=== PATIENT | female | born 2000 | race Caucasian/White ===

== ENCOUNTER 2023-04-20 21:01 | Outpatient (CLI) | payer OTHER ==
[2023-04-20 21:38] VITALS: BP 116/62
[2023-04-20 22:12] LABS: BASOPHILS % (AUTO) 0.1 %; EOSINOPHILS # (AUTO) 0.1 10^3/uL (0.0-0.7); EOSINOPHILS % (AUTO) 0.6 %; HCT - HEMATOCRIT 32.3 % (37.0-47.0); HGB - HEMOGLOBIN 10.9 g/dL (12.0-16.0); LYMPHOCYTES # (AUTO) 2.1 10^3/uL (1.5-3.5); LYMPHOCYTES % (AUTO) 22.7 %; MEAN CORPUSCULAR HEMOGLOBIN 31.6 pg (27.0-31.0); MEAN CORPUSCULAR HGB CONC 33.7 g/dL (32.0-36.0); MEAN CORPUSCULAR VOLUME 93.6 fL (81.0-99.0); MEAN PLATELET VOLUME 9.4 fL (7.9-10.8); MONOCYTES # (AUTO) 0.7 10^3/uL (0.0-1.0); MONOCYTES % (AUTO) 7.5 %; NEUTROPHILS # (AUTO) 6.2 10^3/uL (1.5-6.6); NEUTROPHILS % (AUTO) 68.9 %; PLT - PLATELET COUNT 242 10^3/uL (130-450); RED BLOOD COUNT 3.45 10^6/uL (4.20-5.40); RED CELL DISTRIBUTION WIDTH 12.5 % (12.0-15.0); WHITE BLOOD COUNT 9.1 x10^3/uL (4.8-10.8)
[2023-04-20 22:29] LABS: BILIRUBIN,URINE NEGATIVE (NEGATIVE); GLUCOSE, URINE (UA) NEGATIVE (NEGATIVE); KETONES,URINE (UA) NEGATIVE (NEGATIVE); LEUKOCYTE ESTERASE, URINE NEGATIVE (NEGATIVE); NITRITE,URINE NEGATIVE (NEGATIVE); OCCULT BLOOD,URINE NEGATIVE (NEGATIVE); PROTEIN,URINE NEGATIVE (NEGATIVE); UROBILINOGEN,URINE 0.2 (NORMAL) E.U./dL (NORMAL)
[2023-04-20 22:31] LABS: CLARITY,URINE CLEAR (CLEAR)
[2023-04-20 22:36] LABS: ALBUMIN 3.6 g/dL (3.2-5.5); ALBUMIN/GLOBULIN RATIO 1.3 (1.0-2.2); BILIRUBIN,TOTAL 0.4 mg/dL (0.2-1.0); CALCIUM 8.7 mg/dL (8.5-10.3); CREATININE 0.5 mg/dL (0.6-1.3); POTASSIUM 3.9 mmol/L (3.5-4.5); TOTAL PROTEIN 6.4 g/dL (6.4-8.9)
[2023-04-20] MEDS: LACTATED RINGERS 1,000 ML IV ONE (23:40)
--- NOTE | 2023-04-21 01:19 | PROVIDER PROGRESS NOTE ---
- HPI Chief Complaint: Pain, non-labor Current : Vital Signs Temperature 98.4 F 04/20/23 21:19 Heart Rate 74 04/20/23 21:19 Respiratory Rate 18 04/20/23 21:19 Blood Pressure 116/62 04/20/23 21:19 Temperature 98.4 F 04/20/23 21:19 Heart Rate 74 04/20/23 21:19 Respiratory Rate 18 04/20/23 21:19 Blood Pressure 116/62 04/20/23 21:19 O2 Saturation If not protocol: Oxygen Flow, liters/minute - Procedures OB Procedure Performed: NST Diagnosis/Indication for NST: Decreased movement NST Procedure: 135 mod rox + a cells one variable D cell in early triage Service Date of procedure: 04/20/23 Procedure Details: 135 mod rox + A cells with 1 variable D cell, overall reassuring. - Plan Plan: 22yo G1 @ 27 weeks gestation presented to triage with upper epigastric and RUQ pain started at 2pm today. Initially it started at her back and it feels "like a ball" (makes gesture of a grapefruit sized ball) is swelling in her upper right quadrant. no N/V no F/C no CP / SOB today she hasn't felt the baby move - and not tonight - and he is typically very active at night, so this is unusual for him. ate wendys chili today, and follows no specific intentional diet also had two bowls of cereal this morning with whole milk - which is when the mild pain started PMH: denies PSH: denies POB: G1 PGYN: no h/o abnormal pap no h/o STDs no h/o problems with ovaries or uterus pt with regular monthly periods, when not Meds: PNV, All: NKDA Soc: neg x3, lives with her who is in the [place]. Does drink about 1 liter of chavez coke every day - discussed this & need to stop. VSS NAD Conjunctiva pink, pale sclera +S1, S2, CTAB, no increased work of breathing Abd soft, NT, ND, visibly gravid at -- pressure in upper R quadrant caused some pain - though not acute wincing. Jatin: c/w 27w gestation EFM: 135mod rox + A cells, one rox D cell with SRTB [place]: acontractile Cx: def Ext: neg CCE U/S done because of absent movement -- also showed decreased movement on U/S. A/P: suspect gallbladder pain -- discussed fat free diet and precautions absent movement -- do not suspect that this is related to the pain -- IV fluid bolus -- PO juice -- cEFM -- re U/S in 2-6h depending on tracing. discussed this with patient and her partner. all verbalized understanding and agree with the plan.
--- NOTE | 2023-04-21 01:45 | PROVIDER PROGRESS NOTE ---
Subjective - Prog Note Date Prog Note Date: 04/21/23 Prog Note Time: 01:45 - Subjective Pt reports feeling: Improved Subjective: pt reports feeling baby move much better on bedside U/S markedly improved movement pts pain is also better OK to D/C home will provide writen information on gallbladder diet. Objective - Vital Signs/Intake & Output Vital Signs: Vital Signs x48h Temp Pulse Resp BP 04/20/23 21:19 98.4 F 74 18 116/62 - Lab Results Fish Bones: 04/20/23 22:02 04/20/23 22:02 Other Labs: Lab Results x24hrs 04/20/23 04/20/23 04/20/23 Range/Units 22:02 22:02 21:52 WBC 9.1 (4.8-10.8) x10^3/uL RBC 3.45 L (4.20-5.40) 10^6/uL Hgb 10.9 L (12.0-16.0) g/dL Hct 32.3 L (37.0-47.0) % MCV 93.6 (81.0-99.0) fL MCH 31.6 H (27.0-31.0) pg MCHC 33.7 (32.0-36.0) g/dL RDW 12.5 (12.0-15.0) % Plt Count 242 (130-450) 10^3/uL MPV 9.4 (7.9-10.8) fL Neut # (Auto) 6.2 (1.5-6.6) 10^3/uL Lymph # (Auto) 2.1 (1.5-3.5) 10^3/uL [place] # (Auto) 0.7 (0.0-1.0) 10^3/uL Eos # (Auto) 0.1 (0.0-0.7) 10^3/uL Baso # (Auto) 0.0 (0.0-0.1) 10^3/uL Absolute Nucleated RBC 0.00 x10^3/uL Nucleated RBC % 0.0 /100WBC Sodium 136 (135-145) mmol/L Potassium 3.9 (3.5-4.5) mmol/L Chloride 106 (101-111) mmol/L Carbon Dioxide 26 (21-32) mmol/L Anion Gap 4.0 L (6-13) BUN 10 (6-20) mg/dL Creatinine 0.5 L (0.6-1.3) mg/dL Estimated GFR (MDRD) 156 (>89) Glucose 94 (74-104) mg/dL Calcium 8.7 (8.5-10.3) mg/dL Total Bilirubin 0.4 (0.2-1.0) mg/dL AST 13 (10-42) IU/L ALT 13 (10-60) IU/L Alkaline Phosphatase 55 (42-121) IU/L Total Protein 6.4 (6.4-8.9) g/dL Albumin 3.6 (3.2-5.5) g/dL Globulin 2.8 (2.1-4.2) g/dL Albumin/Globulin Ratio 1.3 (1.0-2.2) Lipase 44 (11-82) U/L Urine Color YELLOW Urine Clarity CLEAR (CLEAR) Urine pH 6.0 (5.0-7.5) PH Ur Specific [place] 1.025 (1.002-1.030) Urine Protein NEGATIVE (NEGATIVE) mg/dL Urine Glucose (UA) NEGATIVE (NEGATIVE) mg/dL Urine Ketones NEGATIVE (NEGATIVE) mg/dL Urine Occult Blood NEGATIVE (NEGATIVE) Urine Nitrite NEGATIVE (NEGATIVE) Urine Bilirubin NEGATIVE (NEGATIVE) Urine Urobilinogen 0.2 (NORMAL) (NORMAL) E.U./dL Ur Leukocyte Esterase NEGATIVE (NEGATIVE) Ur Microscopic Review NOT INDICATED Urine Culture Comments NOT INDICATED
== END 2023-04-21 02:05 | disposition home or self-care (01) ==
LOC: WFO 21:01 → FBP 21:06 → WFO 04-21 02:05
PROVIDERS: ATTEND Obstetrics & Gynecology
DX: O99.891 Other specified diseases and conditions complicating pregnancy (principal); R10.11 Right upper quadrant pain; R10.13 Epigastric pain; O36.8120 Decreased fetal movements, second trimester, not applicable or unspecified; Z3A.27 27 weeks gestation of pregnancy
CPT/HCPCS: 36415; 59025; 80053; 81003; 83690; 85025; 99215; J7120; 81001; 87086

== ENCOUNTER 2023-04-27 10:23 | Outpatient (CLI) | payer OTHER ==
[2023-04-27 11:27] LABS: CREATININE,URINE 127.1 mg/dL; PROTEIN/CREATININE RATIO,URINE 0.2 (<=0.2)
[2023-04-27 11:40] LABS: HCT - HEMATOCRIT 34.9 % (37.0-47.0); HGB - HEMOGLOBIN 11.7 g/dL (12.0-16.0); MEAN CORPUSCULAR HEMOGLOBIN 31.8 pg (27.0-31.0); MEAN CORPUSCULAR HGB CONC 33.5 g/dL (32.0-36.0); MEAN CORPUSCULAR VOLUME 94.8 fL (81.0-99.0); MEAN PLATELET VOLUME 9.5 fL (7.9-10.8); RED BLOOD COUNT 3.68 10^6/uL (4.20-5.40); RED CELL DISTRIBUTION WIDTH 12.6 % (12.0-15.0); WHITE BLOOD COUNT 10.4 x10^3/uL (4.8-10.8)
[2023-04-27 11:57] LABS: ALBUMIN 3.6 g/dL (3.2-5.5); ALBUMIN/GLOBULIN RATIO 1.3 (1.0-2.2); BILIRUBIN,TOTAL 0.4 mg/dL (0.2-1.0); CALCIUM 8.9 mg/dL (8.5-10.3); CREATININE 0.6 mg/dL (0.6-1.3); POTASSIUM 4.1 mmol/L (3.5-4.5); TOTAL PROTEIN 6.3 g/dL (6.4-8.9)
[2023-04-27 12:11] LABS: THYROID STIMULATING HORMONE 0.94 uIU/mL (0.34-5.60)
== END 2023-04-27 10:24 | disposition home or self-care (01) ==
LOC: LAB 10:23
PROVIDERS: ATTEND Nurse Practitioner
DX: O99.891 Other specified diseases and conditions complicating pregnancy (principal); R42 Dizziness and giddiness
CPT/HCPCS: 36415; 80053; 82570; 82950; 84156; 84443; 85027

== ENCOUNTER 2023-05-31 15:00 | Outpatient (CLI) | payer OTHER ==
--- NOTE | 2023-05-31 16:23 | Ultrasound Report ---
PROCEDURE: OB Anatomy Scan INDICATIONS: SUPERVISION OF OUTSIDE/PRIOR DATING DATA: Last menstrual period (LMP): 10/13/2022. LMP-based estimated date of delivery (NILE): 07/20/2023. First dating scan (date and location): Physician's office. Estimated date of delivery (NILE) from first dating scan: 07/20/2023. The below data below was generated using the clinical NILE of 07/20/2023 TECHNIQUE: Real-time scanning was performed of the fetus, with image documentation and biometric measurements. Endovaginal scanning: Not performed. COMPARISON: None. FINDINGS: General: A single living intrauterine gestation is present. Presentation: Cephalic Placenta: Placental position is anterior, without previa. Amniotic fluid index: 10.2 cm, within normal limits for gestational age. heart rate: 152 beats per minute. Maternal cervical canal: 3.6 cm long; normal length is 2.5 cm or more. biometrics: Biparietal diameter: 8.21 cm, 33 weeks 0 days Head circumference: 33.3 cm, 35 weeks 1 day Abdominal circumference: 31.3 cm, 35 weeks 2 days Femur length: 6.63 cm, 34 weeks 1 day Estimated working clinical age: 32 weeks 6 days Composite gestational age from present scan: 34 weeks 3 days Estimated weight and percentile: 2503.5 g, 91.5 percentile Measurement variability in biometric dating: +/- 10 days from 12-20 weeks gestation, +/- 2 weeks from 20-30 weeks gestation, +/- 3 weeks at 30 weeks gestation or later. Anatomic survey: Neuro: Ventricles are normal at less than 10 mm. Cisterna magna is normal at 3-11 mm. Cerebellum i s normal in size and morphology. Nuchal skin fold: Not evaluated Face: Nose and lips, facial profile are normal. Spine: No evidence for spina bifida. Heart: 4 chamber view within normal limits. Outflow tracts not imaged Diaphragm: Diaphragm is intact. Stomach: Left-sided stomach is present. Kidneys: No hydronephrosis. Normal is less than 5 mm in 2nd trimester, less than 7 mm in 3rd trimester. Cord: 3 vessel cord. Cord insertion not imaged Bladder: Normal in size. Extremities: All 4 extremities are visualized. IMPRESSION: 1. Third trimester intrauterine with no sonographic evidence of complications. Current ultr asound age is 11 days greater than clinical age. Limited anatomy study secondary to relatively late stage of . Reviewed by: Benji Da Silva MD on 05/31/2023 4:22 PM PST Approved by: Benji Da Silva MD on 05/31/2023 4:22 PM PST Station ID: [id number]
== END 2023-05-31 15:01 | disposition home or self-care (01) ==
LOC: DI 15:00
PROVIDERS: ATTEND Obstetrics & Gynecology
DX: Z34.03 Encounter for supervision of normal first pregnancy, third trimester (principal)

== ENCOUNTER 2023-06-08 11:24 | Outpatient (CLI) | payer OTHER ==
[2023-06-08 16:33] LABS: CREATININE,URINE 186.6 mg/dL; PROTEIN/CREATININE RATIO,URINE 0.2 (<=0.2)
== END 2023-06-08 23:59 | disposition home or self-care (01) ==
LOC: LAB.R 11:24
PROVIDERS: ATTEND Nurse Practitioner
DX: O26.02 Excessive weight gain in pregnancy, second trimester (principal)
CPT/HCPCS: 82570; 84156

== ENCOUNTER 2023-06-08 11:47 | Outpatient (CLI) | payer OTHER ==
[2023-06-08 12:00] LABS: BASOPHILS % (AUTO) 0.2 %; EOSINOPHILS # (AUTO) 0.1 10^3/uL (0.0-0.7); EOSINOPHILS % (AUTO) 0.6 %; HCT - HEMATOCRIT 35.1 % (37.0-47.0); LYMPHOCYTES # (AUTO) 1.8 10^3/uL (1.5-3.5); LYMPHOCYTES % (AUTO) 14.6 %; MEAN CORPUSCULAR HEMOGLOBIN 31.3 pg (27.0-31.0); MEAN CORPUSCULAR HGB CONC 34.2 g/dL (32.0-36.0); MEAN CORPUSCULAR VOLUME 91.6 fL (81.0-99.0); MEAN PLATELET VOLUME 9.7 fL (7.9-10.8); MONOCYTES # (AUTO) 1.1 10^3/uL (0.0-1.0); MONOCYTES % (AUTO) 8.5 %; NEUTROPHILS # (AUTO) 9.2 10^3/uL (1.5-6.6); NEUTROPHILS % (AUTO) 75.1 %; PLT - PLATELET COUNT 266 10^3/uL (130-450); RED BLOOD COUNT 3.83 10^6/uL (4.20-5.40); RED CELL DISTRIBUTION WIDTH 12.6 % (12.0-15.0); WHITE BLOOD COUNT 12.3 x10^3/uL (4.8-10.8)
[2023-06-08 12:16] LABS: ALBUMIN 3.7 g/dL (3.2-5.5); ALBUMIN/GLOBULIN RATIO 1.5 (1.0-2.2); BILIRUBIN,TOTAL 0.4 mg/dL (0.2-1.0); CALCIUM 9.7 mg/dL (8.5-10.3); CREATININE 0.5 mg/dL (0.6-1.3); TOTAL PROTEIN 6.2 g/dL (6.4-8.9)
== END 2023-06-08 11:48 | disposition home or self-care (01) ==
LOC: LAB 11:47
PROVIDERS: ATTEND Nurse Practitioner
DX: H53.419 Scotoma involving central area, unspecified eye (principal); R51.9 Headache, unspecified
CPT/HCPCS: 36415; 80053; 85025

== ENCOUNTER 2023-06-08 11:57 | Outpatient (CLI) | payer OTHER ==
--- NOTE | 2023-06-08 12:14 | PROCEDURE REPORT ---
- HPI Diagnosis/Indication for NST: Other ( tachycardia) Current EDU 07/20/23 Gestation 34 Weeks and 0 Days 1 Para 0 Vital Signs Temperature 98.8 F 06/08/23 12:11 Heart Rate 89 06/08/23 12:11 Respiratory Rate 16 06/08/23 12:11 Blood Pressure 120/73 06/08/23 12:11 Temperature 98.8 F 06/08/23 12:11 Heart Rate 89 06/08/23 12:11 Respiratory Rate 16 06/08/23 12:11 Blood Pressure 120/73 06/08/23 12:11 O2 Saturation If not protocol: Oxygen Flow, liters/minute - NST Procedure NST Procedure Start Time 21:14 Stop Time 22:11 Performed: 06/08/2023 Read: 06/08/2023. - Results and Plan Plan: Patient is a 23-year-old G1, P0 at 34 weeks 0 days gestation sent for NST from the clinic for tachycardia. She feels good movement. No contractions, no leaking. NST: 140 bpm baseline, moderate variability, no accelerations, no decelerations. Nonreactive NST [place]: Quiescent Nonreactive NST Vibroacoustic stimulation used, but nonreactive. Gave patient a snack and liquid and performed an JESSICA of 13.7 cm. And during this time patient was placed back on the monitor with a reactive NST. Patient discharged with routine care.
[2023-06-08 12:18] VITALS: BP 120/73
== END 2023-06-08 13:50 | disposition home or self-care (01) ==
LOC: WFO 11:57 → FBP 12:00 → WFO 13:50
PROVIDERS: ATTEND Obstetrics & Gynecology
DX: O36.8330 Maternal care for abnormalities of the fetal heart rate or rhythm, third trimester, not applicable or unspecified (principal); Z3A.34 34 weeks gestation of pregnancy; O26.03 Excessive weight gain in pregnancy, third trimester; O99.891 Other specified diseases and conditions complicating pregnancy; R51.9 Headache, unspecified; H53.419 Scotoma involving central area, unspecified eye
CPT/HCPCS: 36415; 59025; 80053; 82570; 84156; 85025; 99214

== ENCOUNTER 2023-06-22 08:00 | Outpatient (CLI) | payer OTHER ==
[2023-06-22 16:31] LABS: CREATININE,URINE 166.5 mg/dL; PROTEIN/CREATININE RATIO,URINE 0.2 (<=0.2)
== END 2023-06-22 23:59 | disposition home or self-care (01) ==
LOC: LAB.WC 08:00
PROVIDERS: ATTEND Nurse Practitioner
DX: O99.891 Other specified diseases and conditions complicating pregnancy (principal); R51.9 Headache, unspecified; Z36.85 Encounter for antenatal screening for Streptococcus B
CPT/HCPCS: 82570; 84156; 87797

== ENCOUNTER 2023-06-29 12:16 | Outpatient (CLI) | payer OTHER ==
[2023-06-29 12:32] VITALS: BP 120/67; O2SAT 97
--- NOTE | 2023-06-29 15:24 | Ultrasound Report ---
PROCEDURE: OB Biophysical Profile INDICATIONS: decrease movement OUTSIDE/PRIOR DATING DATA: Last menstrual period (LMP): 10/13/2022. LMP-based estimated date of delivery (NILE): 07/20/2023. First dating scan (date and location): Physician's office. Estimated date of delivery (NILE) from first dating scan: 07/20/2023. The below data below was generated using the clinical NILE of 07/20/2023 TECHNIQUE: Real-time scanning was performed of the fetus, with image documentation and biometric julio césar surements. Biophysical profile was also obtained. Endovaginal scanning: Not performed COMPARISON: 05/31/2023 FINDINGS: General: A single living intrauterine gestation is present. Presentation: Vertex Placenta: Placental position is anterior, without previa. Amniotic fluid index: 10.0 cm cm, normal for gestational age. heart rate: 169 beats per minute. Maternal cervical canal: 4.8 cm long; normal length is 2.5 cm or more. Estimated gestational age from initial scan: 37 weeks, 0 days. Biophysical profile: Tone: 2 points. Movement: 2 points. Respiration: 2 points. Largest pocket of fluid: 2 points. IMPRESSION: Single live intrauterine consistent with 37 weeks and 0 days. Normal biophysical profile. Reviewed by: Brad Pacheco MD on 06/29/2023 3:23 PM PDT Approved by: Brad Pacheco MD on 06/29/2023 3:23 PM PDT Station ID: [id number]
--- NOTE | 2023-06-29 18:17 | PROVIDER PROGRESS NOTE ---
- HPI Chief Complaint: Decreased movement Current : Current EDU 07/20/23 Gestation 37 Weeks and 0 Days 1 Para 0 Vital Signs Temperature 98.2 F 06/29/23 12:25 Heart Rate 84 06/29/23 12:25 Respiratory Rate 17 06/29/23 12:25 Blood Pressure 120/67 06/29/23 12:25 O2 Saturation 97 06/29/23 12:25 Temperature 98.2 F 06/29/23 12:31 Heart Rate 84 06/29/23 12:25 Respiratory Rate 17 06/29/23 12:25 Blood Pressure 120/67 06/29/23 12:25 O2 Saturation 97 06/29/23 12:25 If not protocol: Oxygen Flow, liters/minute - Procedures NST Procedure: NST Procedure Start Date 06/29/23 Start Time 14:10 Stop Time 14:36 Vibroacoustic Stimulation Used No Patient States Movement Yes: decrease - Plan Plan: Patient is a 23-year-old G1, P0 at 37 weeks 0 days gestation presented to triage for decreased movement. Since arrival, she has had better movement and feels well,. Denies contractions, leaking, bleeding. She denies headache, right upper quadrant pain, changes in vision. Physical Exam Constitutional: alert, no acute distress, well hydrated, well developed, well nourished, appropriate dress. Cardiovascular: Regular rate and rhythm. Respiratory: no respiratory distress. Abdomen: nondistended, nontender, no guarding. Psych: affect and mood appropriate, normal interaction, good eye contact. FHT: 145 bpm baseline, moderate variability, accelerations present, no decelerations during NST, but during continuous monitoring, did have occasional variable deceleration. Reactive NST [place]: Rare BPP: 11/01 JESSICA: 10 cm Assessment and plan Decreased movement: Adequate fluid, reactive NST, good movement while here. -Plan to hydrate, eat, return tomorrow for NST 37 weeks gestation Routine care
== END 2023-06-29 14:35 | disposition home or self-care (01) ==
LOC: WFO 12:16 → FBP 12:16 → WFO 14:35
PROVIDERS: ATTEND Obstetrics & Gynecology
DX: O36.8130 Decreased fetal movements, third trimester, not applicable or unspecified (principal); Z3A.37 37 weeks gestation of pregnancy
CPT/HCPCS: 59025; 99215

== ENCOUNTER 2023-06-30 10:50 | Outpatient (CLI) | payer OTHER ==
[2023-06-30 11:04] VITALS: BP 121/71; O2SAT 97
--- NOTE | 2023-06-30 14:33 | PROCEDURE REPORT ---
- HPI Current EDU 07/20/23 Gestation 37 Weeks and 1 Days 1 Para 0 Vital Signs Temperature 98.2 F 06/30/23 10:58 Heart Rate 105 H 06/30/23 10:58 Respiratory Rate 16 06/30/23 10:58 Blood Pressure 121/71 06/30/23 10:58 Temperature 98.2 F 06/30/23 11:01 Heart Rate 105 H 06/30/23 11:01 Respiratory Rate 16 06/30/23 11:01 Blood Pressure 121/71 06/30/23 11:01 O2 Saturation 97 06/30/23 11:01 If not protocol: Oxygen Flow, liters/minute - NST Procedure NST Procedure Start Date 06/30/23 Start Time 10:58 Stop Time 11:35 Vibroacoustic Stimulation Used No Patient States Movement Yes - Results and Plan Plan: Patient is a 23-year-old G1, P0 at 37 weeks 1 day gestation here for NST. NST Performed 06/30/2023 NST Read 06/30/2023 FHT: 150 bpm baseline, moderate variability, accelerations present, no decelerations. Reactive NST [place]: Quiescent Diagnosis 37 weeks gestation Decreased movement Continue with scheduled OB care
== END 2023-06-30 11:42 | disposition home or self-care (01) ==
LOC: WFO 10:50 → FBP 10:51 → WFO 11:42
PROVIDERS: ATTEND Obstetrics & Gynecology
DX: O36.8130 Decreased fetal movements, third trimester, not applicable or unspecified (principal); Z3A.37 37 weeks gestation of pregnancy
CPT/HCPCS: 59025

== ENCOUNTER 2023-07-13 23:20 | Inpatient (IN) | payer OTHER ==
[2023-07-14] MEDS ORDERED: NIFEdipine 10 MG CAPSULE PO PRN (00:10)
[2023-07-14] MEDS ORDERED: METHYLERGONOVINE 0.2 MG/ML VIAL IM PRN (00:10)
[2023-07-14] MEDS ORDERED: hydrALAZINE INJ 20 MG/ML VIAL IVP PRN ×2 (00:10)
[2023-07-14] MEDS ORDERED: OXYTOCIN 10 UNIT/ML VIAL IM PRN (00:10)
[2023-07-14] MEDS ORDERED: TERBUTALINE 1 MG/ML VIAL SUBQ PRN (00:10)
[2023-07-14] MEDS ORDERED: LABETALOL 20 MG/4 ML SYRINGE IVP PRN ×3 (00:10)
[2023-07-14] MEDS ORDERED: miSOPROStoL 200 MCG TABLET BC PRN (00:10)
[2023-07-14] MEDS ORDERED: CARBOPROST TROMETHAMINE 250 MCG/ML VIAL IM PRN (00:10)
[2023-07-14] MEDS ORDERED: SODIUM CHLORIDE FLUSH 0.9% 10 ML SYRINGE IVP PRN (00:10)
[2023-07-14] MEDS ORDERED: miSOPROStoL 200 MCG TABLET PR PRN (00:10)
[2023-07-14] MEDS ORDERED: fentaNYL 100 MCG/2 ML VIAL IVP PRN (00:10)
[2023-07-14 00:33] LABS: BASOPHILS % (AUTO) 0.2 %; EOSINOPHILS % (AUTO) 0.1 %; HCT - HEMATOCRIT 35.6 % (37.0-47.0); HGB - HEMOGLOBIN 12.3 g/dL (12.0-16.0); LYMPHOCYTES # (AUTO) 1.8 10^3/uL (1.5-3.5); LYMPHOCYTES % (AUTO) 9.7 %; MEAN CORPUSCULAR HEMOGLOBIN 30.9 pg (27.0-31.0); MEAN CORPUSCULAR HGB CONC 34.6 g/dL (32.0-36.0); MEAN CORPUSCULAR VOLUME 89.4 fL (81.0-99.0); MEAN PLATELET VOLUME 10.8 fL (7.9-10.8); MONOCYTES # (AUTO) 1.2 10^3/uL (0.0-1.0); MONOCYTES % (AUTO) 6.4 %; NEUTROPHILS # (AUTO) 15.3 10^3/uL (1.5-6.6); NEUTROPHILS % (AUTO) 83.2 %; PLT - PLATELET COUNT 261 10^3/uL (130-450); RED BLOOD COUNT 3.98 10^6/uL (4.20-5.40); WHITE BLOOD COUNT 18.4 x10^3/uL (4.8-10.8)
[2023-07-14] MEDS ORDERED: SODIUM CHLORIDE FLUSH 0.9% 10 ML SYRINGE IVP SCH (01:00)
[2023-07-14] MEDS: LACTATED RINGERS 1,000 ML IV ONE (01:29)
[2023-07-14] MEDS ORDERED: MINERAL OIL LIGHT 10 ML ONE (03:22)
[2023-07-14] MEDS: OXYTOCIN/SODIUM CHLORIDE 500 ML IV PRN (03:35)
[2023-07-14] MEDS: lidocaine 1% 20 ML MDV ID PRN (03:42)
[2023-07-14] MEDS: TRANEXAMIC ACID IN NACL 1,000 MG/100 ML BAG IV PRN (03:42)
[2023-07-14] MEDS: MINERAL OIL LIGHT 10 ML MC ONE (03:42)
[2023-07-14] MEDS ORDERED: oxyCODONE 5 MG TABLET PO PRN (04:20)
[2023-07-14] MEDS ORDERED: MAGNESIUM HYDROXIDE 2,400 MG/30 ML UDC PO PRN (04:20)
[2023-07-14] MEDS ORDERED: diphenhydrAMINE 25 MG CAPSULE PO PRN (04:20)
--- NOTE | 2023-07-14 04:27 | HISTORY & PHYSICAL EXAMINATION ---
Admit History - Visit Reason Visit Reason: Contractions - Care: positive: [facility] Smoking Status: Former smoker - Mother's Labs Mother's Blood Type: positive: AB Mother's RH: positive: Positive GBS: positive: Group B Step Negative - Other Maternal History Other Maternal History: HPI: after her clinic visit, started fab at about 4 pm. came to [facility] just before midnight and was 4 cm. desires unmedicated . Patient presents today for her f/u at 39+0 .................. .................................................Elisha Mcdaniel LPN July 13, 2023 10:39 AM. Allergies: Allergies Reviewed: Done No Known Allergies Medications: Meds Reviewed: Done * ELECTRIC BREAST PUMP Use 1 device as directed as directed USE TO EXPRESS MILK ACCORDING TO BABY'S NEEDS Z39.1 NILE 07/20/2023 * vitamin * Tylenol (acetaminophen) Problems: Supervision of normal first , third trimester (ICD-V22.0) (ICD10- Z34.03) Past Medical History: Depression/anxiety Vital Signs: Patient Profile: 23 Years Old Female Height: 70 inches Weight: 226.1 pounds BMI: 32.56 BP sittin / 70 Vitals Entered By: Elisha Mcdaniel LPN (July 13, 2023 10:39 AM) Meds Reviewed: Done Allergies Reviewed: Done No known allergies: T Flowsheet View for Follow-up Visit Estimated weeks of gestation: 39 0/7 Weight: 226.1 Blood pressure: 128 / 70 Headache: No Nausea/vomiting: No Edema: min Fundal height: 40 FHR: 140 Vaginal bleeding: no Vaginal discharge: no activity: yes Labor symptoms: no position: vtx Cx Dilation: 0 Cx Station: -3 Taking vits? Y Smoking: n/a Next visit: Comment: induction next week. PP iUD desired, ParaGard info given. wehn to go to [facility] reviewed for labor and for induction. cervix too posterior to reach. vertex in SAMEER bulging Here with Luis. -djl G1PO LMP: 10/13/22 NILE by LMP: 07/19/22 US:01/13/23 - c/w dates Final NILE: 07/19/22 sex: It's a boy. FOB Luis. [place] Pre- Weight:152 BMI: 21.81 Blood type: AB+ Antibody: neg CBC: PLT 313 HCT 39.7 HGB 13.6 RUB:Imm VZV:Imm HBsAg: neg HepC: nreg RPR/AB-EIA:NR HIV: neg PAP:12/16/22 - NILM GC/CT:neg HSV: declines self and partner Genetic testing: nuchal translucency normal Covid: vaccinated Flu: 03/28/2023 FAS: (completed prior to transfer 02/24/2023) requested x2. Reordered previously. Normal anatomy scan. Three-vessel cord. Placenta anterior without previa. EFW 2503 g, 92nd percentile. Placenta: Cord: JESSICA: EFW: 50gm OGCT: 101 3HR GTT: TDAP:04/27 Breast Pump:04/27 3rd trimester H/H 11.7/34.9 PLT 225 GBS: 06/21 Negative Delivery plan: Contraception: POST PLACENTAL IUD PLACEMENT. Next 2-3 years P: 0 LMP: 10/13/2022 EDC: 07/20/2023 EDC by Ultrasound: 07/19/2023 Height: 70 (05/25/2023 11:16:48 AM) Weight: 226.1 Gonnorhea: Negative (12/16/2022 3:51:06 PM) Chlamydia: negative (12/16/2022 10:40:06 AM) Group B: NEGATIVE (06/22/2023 10:34:00 AM) US: 13W 2D (01/13/2023 10:30:11 AM) Blood Type: AB+ (12/16/2022 10:37:26 AM) RH Type: + (12/16/2022 10:38:01 AM) Last Antibody Screen: negative (12/16/2022 10:38:09 AM) Gonnorrhea: Negative (12/16/2022 3:51:06 PM) Chlamydia: negative (12/16/2022 10:40:06 AM) RPR: negative (12/16/2022 10:39:05 AM) Last Pap: Normal (12/16/2022 10:39:47 AM) Next pap due: 12/16/2025 (03/28/2023 2:24:41 PM) - HPI Current EDU 07/20/23 Gestation 39 Weeks and 1 Days 1 Vital Signs Temperature 99.1 F 07/13/23 23:30 Heart Rate 73 07/13/23 23:30 Respiratory Rate 18 07/13/23 23:30 Blood Pressure 137/45 H 07/13/23 23:30 Temperature 99.0 F 07/14/23 00:29 Heart Rate 73 07/13/23 23:30 Respiratory Rate 18 07/13/23 23:30 Blood Pressure 137/45 H 07/13/23 23:30 O2 Saturation If not protocol: Oxygen Flow, liters/minute - NST Procedure NST Procedure Start Time 10:58 Stop Time 11:35 Meds/Allgy - Allergies Allergies/Adverse Reactions: Allergies Allergy/AdvReac Type Severity Reaction Status Date / Time No Known Drug Allergies Allergy Verified 04/20/23 21:30 Physical - Abdominal Exam Vital Signs: Temp Pulse Resp BP Pulse Ox O2 Flow Rate 99.0 F 73 18 137/45 H 07/14/23 00:29 07/13/23 23:30 07/13/23 23:30 07/13/23 23:30 Contraction Frequency (min/apart): 3 Contraction Intensity: positive: Moderate Uterine Resting Tone: positive: Soft - Monitoring Strip Review: positive: Category I - Presentation Presentation: positive: Vertex - Vaginal Exam Membranes: positive: Membranes intact Dilation (in cm): 4 Station: positive: -2 - Speculum Exam Speculum Exam Performed: positive: No - Other Notes Labor Progress Note/Additional Text: on arrival was 4 cm. then next check by RN 6 cm with bulging bag. ANNETTE broke with a big gush, like in the movies. and she was ready to start pushing. I came in just after that. Plan for Labor - Plan For Labor I expect patient to be DC'd or transferred within 96 hours.: Yes Plan for Labor: vaginal delivery.
--- NOTE | 2023-07-14 04:34 | DELIVERY NOTE ---
Delivery Note - Labor Labor: positive: Spontaneous - Delivery Method Delivery Method: positive: Spontaneous vaginal delivery - Presentation Presentation: positive: Vertex - Nuchal Cord Nuchal Cord: positive: None - Anesthetic Anesthetic: positive: Lidocaine - 1% plain Volume: positive: Other (20 cc) - Amniotic Fluid Description Amniotic Fluid Description: positive: Clear - Episiotomy Type Episiotomy Type: positive: None - Laceration Laceration: positive: 2nd degree, Vaginal - Suture Suture Type: positive: Vicryl Suture Size: positive: 3-0 - Delivery Outcome Delivery Outcome: positive: Livebirth - [place] : positive: Placed in direct skin contact with mother, Bulb syringe, Stimulated, Warmed, [place] used sex: positive: Male - Cord Cord: positive: 3 vessels - Placenta Placenta: positive: Intact - Estimated Blood Loss Estimated Blood Loss (in cc): 1,800 - Post Delivery Events Post Delivery Events: positive: Hemorrhage (from vaginal laceration. TXA given.) - Delivery Comments (Free Text/Narrative) Delivery Comments (Free Text/Narrative): patient with completely spontaneous labor. SROM with a big gush. clear. unmedicated. pushed for about 30 minutes. Mineral oil was used to massage and stretch perineum son. Delivered her son over an intact perineum. Luis helped with delivery. Baby Luis Canas put on mom's belly and was vigorous from time of . Mom did great. Cord cut and clamped after about 2 minutes. Oxytocin infused in the IV. Placenta delivered spontaneously. At this time there was alot of blood in the collection bag. About 700 cc of fluid as well. Perineum was inspected and there was a large laceration of the vagina that had arterial bleeding. TXA was given. Lidocaine was gotten and given to enable repair. rectal and anal tissue in tact. bleeding from middle of tear. 3-0 Vicryl used and this area was closed first, pretty much stopping the big bleeding. repair done in 2 layers. more in some spots. Good cosmetic result. Rectal exam done after and felt completley intact. patient tolerated everything very well.
[2023-07-14] MEDS: ACETAMINOPHEN 325 MG TABLET PO PRN (05:00)
[2023-07-14] MEDS: IBUPROFEN 600 MG TABLET PO SCH (05:00)
[2023-07-14] MEDS ORDERED: SIMETHICONE CHEW 80 MG TABLET PO SCH (06:00)
[2023-07-14] MEDS: ONDANSETRON ODT 4 MG TABLET TL PRN (07:26)
[2023-07-14] MEDS: DOCUSATE SODIUM 100 MG CAPSULE PO SCH (10:13)
[2023-07-14 10:31] LABS: BASOPHILS % (AUTO) 0.2 %; HGB - HEMOGLOBIN 9.6 g/dL (12.0-16.0); LYMPHOCYTES % (AUTO) 8.7 %; MEAN CORPUSCULAR HEMOGLOBIN 30.5 pg (27.0-31.0); MEAN CORPUSCULAR HGB CONC 33.1 g/dL (32.0-36.0); MEAN CORPUSCULAR VOLUME 92.1 fL (81.0-99.0); MEAN PLATELET VOLUME 10.4 fL (7.9-10.8); MONOCYTES % (AUTO) 6.5 %; PLT - PLATELET COUNT 242 10^3/uL (130-450); RED BLOOD COUNT 3.15 10^6/uL (4.20-5.40); RED CELL DISTRIBUTION WIDTH 13.2 % (12.0-15.0); WHITE BLOOD COUNT 21.7 x10^3/uL (4.8-10.8)
[2023-07-14 10:32] LABS: ABNORMAL LYMPHS % (MANUAL) 0 %
[2023-07-14 10:58] LABS: BAND NEUTROPHILS % (MANUAL) 3 %; DIFFERENTIAL COMMENT MANUAL DIFFERENTIAL; LYMPHOCYTES # (MANUAL) 2.2 10^3/uL (1.5-3.5); LYMPHOCYTES % (MANUAL) 10 %; MONOCYTES # (MANUAL) 0.2 10^3/uL (0.0-1.0); NEUTROPHILS # (MANUAL) 19.3 10^3/uL (1.5-6.6); PLATELET ESTIMATE, MANUAL NORMAL (130-450,000) (NORMAL); PLATELET MORPHOLOGY NORMAL APPEARANCE (NORMAL); RBC MORPHOLOGY (MULTIPLE) NORMAL APPEARANCE (NORMAL); WBC MORPHOLOGY (MULTIPLE) NORMAL APPEARANCE (NORMAL)
--- NOTE | 2023-07-14 12:58 | PHARMACY PROGRESS NOTE ---
- Best Possible Medication History Admit Date and Time: 07/14/23 0010 Processed by: Pharmacy Medications reviewed in ED?: No Medication History completed: Yes Patient Interview: Pt unable to participate Secondary Source(s): Physician records, Insurance records As the person ultimately responsible for medication therapy, providers are able to order a medication from an existing home medication list in [facility] via the "Reconcile Routine" prior to Confirmation of that medication by technical customer support specialist. Such practice is discouraged except when the physician, in their clinical judgment, deems that a medical need exists for a medication without regard to previous use.
[2023-07-14] MEDS: FERRIC GLUCONATE 125 MG in SODIUM CHLORIDE 0.9% 100ML 100 ML IV ONE (13:00)
[2023-07-15 05:57] LABS: BASOPHILS # (AUTO) 0.1 10^3/uL (0.0-0.1); BASOPHILS % (AUTO) 0.3 %; EOSINOPHILS # (AUTO) 0.1 10^3/uL (0.0-0.7); EOSINOPHILS % (AUTO) 0.8 %; HGB - HEMOGLOBIN 9.4 g/dL (12.0-16.0); LYMPHOCYTES # (AUTO) 3.9 10^3/uL (1.5-3.5); LYMPHOCYTES % (AUTO) 24.3 %; MEAN CORPUSCULAR HEMOGLOBIN 30.2 pg (27.0-31.0); MEAN CORPUSCULAR HGB CONC 32.4 g/dL (32.0-36.0); MEAN CORPUSCULAR VOLUME 93.2 fL (81.0-99.0); MONOCYTES # (AUTO) 1.3 10^3/uL (0.0-1.0); MONOCYTES % (AUTO) 8.4 %; NEUTROPHILS # (AUTO) 10.3 10^3/uL (1.5-6.6); NEUTROPHILS % (AUTO) 65.2 %; PLT - PLATELET COUNT 225 10^3/uL (130-450); RED BLOOD COUNT 3.11 10^6/uL (4.20-5.40); RED CELL DISTRIBUTION WIDTH 13.6 % (12.0-15.0); WHITE BLOOD COUNT 15.8 x10^3/uL (4.8-10.8)
[2023-07-15 10:11] VITALS: O2SAT 99
--- NOTE | 2023-07-15 21:16 | PROVIDER PROGRESS NOTE ---
Subjective - Subjective Pt reports feeling: Improved Subjective: feeling pretty good. breast feeding. some dizziness when up for a while. but that was only time. feels ok now. tolerating regular diet. pain well controlled. Objective - Vital Signs/Intake & Output Vital Signs: Vital Signs x48h Temp Pulse Resp BP 07/15/23 17:58 98.2 F 83 16 109/45 L Intake & Output: Intake & Output 07/12/23 07/13/23 07/14/23 07/15/23 23:59 23:59 23:59 23:59 Intake Total 1950 240 Output Total 1100 Balance 850 240 - Objective General Appearance: positive: No acute distress - Lab Results Fish Bones: 07/15/23 05:18 Other Labs: Lab Results x24hrs 07/15/23 Range/Units 05:18 WBC 15.8 H (4.8-10.8) x10^3/uL RBC 3.11 L (4.20-5.40) 10^6/uL Hgb 9.4 L (12.0-16.0) g/dL Hct 29.0 L (37.0-47.0) % MCV 93.2 (81.0-99.0) fL MCH 30.2 (27.0-31.0) pg MCHC 32.4 (32.0-36.0) g/dL RDW 13.6 (12.0-15.0) % Plt Count 225 (130-450) 10^3/uL MPV 11.0 H (7.9-10.8) fL Neut # (Auto) 10.3 H (1.5-6.6) 10^3/uL Lymph # (Auto) 3.9 H (1.5-3.5) 10^3/uL [place] # (Auto) 1.3 H (0.0-1.0) 10^3/uL Eos # (Auto) 0.1 (0.0-0.7) 10^3/uL Baso # (Auto) 0.1 (0.0-0.1) 10^3/uL Absolute Nucleated RBC 0.00 x10^3/uL Nucleated RBC % 0.0 /100WBC Assessment/Plan - Problem List (1) Vaginal delivery Impression: routine care. doing well. (2) hemorrhage Impression: stable now. got iv iron. hemorrhage was from vaginal laceration, not atony. doing well now. stay hydrated. Qualifiers: hemorrhage type: third-stage Qualified Code(s): O72.0 - Third- stage hemorrhage
[2023-07-16 08:51] VITALS: BP 118/71
--- NOTE | 2023-07-16 16:53 | Labor Flowsheet ---
Labor Flowsheet Datetime Report Generated by CPN: 07/16/2023 16:53 Datetime: 07/16/2023 08:20 VITAL SIGNS NBP Sys/Lilia/Mean (mmHg): 118 : 71 : 82 Pulse: 84 LaborFlag: Labor Datetime: 07/14/2023 07:54 SpO2 (%): 97 Datetime: 07/14/2023 03:35 ASSESSMENT A Monitor Mode: Telemetry FHR Baseline Rate : 135 Decelerations: Early Pushing Position: Pushing Lithotomy Pushing Progress: Presenting Part Visible Stage 2 Comments: delivered Datetime: 07/14/2023 03:30 STAGE 2 Pushing: Urge to Push Datetime: 07/14/2023 03:05 Category: Category I Datetime: 07/14/2023 02:55 VAGINAL EXAM Dilatation (cm): 10.0 Effacement (%): 100 Exam by: Stephanie,RN Datetime: 07/14/2023 02:45 UTERINE ACTIVITY Monitor Mode: External Frequency (min): 1-4 Quality: Moderate Duration (sec): 60-110 Pattern: Normal: <= 5 Contractions in 10 Minutes Resting Tone (Palpate): Relaxed Variability: Moderate 6-25 bpm Accelerations: 15X15 COMMUNICATION Communication: Call/Page Placed to Provider Communication Comments: ROM and provider request to bedside Datetime: 07/14/2023 02:43 Membrane Status: Ruptured Membranes Rupture Method: Spontaneous Amniotic Fluid Color: Clear Amniotic Fluid Amount: Copious Amniotic Fluid Odor: Normal Datetime: 07/14/2023 02:30 Station: -2 Datetime: 07/14/2023 01:55 Monitor Interventions for UA: [place] Adjusted Datetime: 07/14/2023 01:49 Monitor Interventions for FHR: Ultrasound Adjusted Datetime: 07/14/2023 01:28 PATIENT CARE Patient Position/Activity: Left Lateral Datetime: 07/14/2023 00:00 Stage of : Labor
--- NOTE | 2023-07-16 22:34 | DISCHARGE SUMMARY ---
Discharge Summary Admit Date: 07/14/23 Discharge Date: 07/16/23 Discharging Provider: Pippa Almaraz MD Code Status: Attempt Resuscitation Condition at Discharge: Good - DIAGNOSES Admission Diagnoses: term in active labor. Discharge Diagnoses with Status of Each Condition: vaginal delivery post delivery hemorrhage from vaginal laceration. stable after. IV iron given. - HPI History of Present Illness: uncomplicated first . here in active labor. presents 6 cm and progressed relatively quickly. - HOSPITAL COURSE Hospital Course: labored for a few hour without medication. Once complete pushed for about 30 minutes to deliver her son, Luis Canas over an intact perineum. Her helped deliver the baby. baby weight 3980 gm. It was vigorous from . after delivery, a large vaginal and perineal laceration was noted and was repaired after injecting with lidocaine. It was bleeding a lot so TXA was also give. total weighed blood loss about 1800 cc. patient was never symptomatic from blood loss. hct 29%. IV iron given. discharge home on PPD #2. - ALLERGIES Allergies/Adverse Reactions: Allergies Allergy/AdvReac Type Severity Reaction Status Date / Time No Known Drug Allergies Allergy Verified 04/20/23 21:30 - MEDICATIONS Home Medications: Ambulatory Orders Medication Instructions Recorded Confirmed Pnv No.95/Ferrous Fum/Folic AC 1 tab PO DAILY 07/14/23 07/14/23 [ Tablet] Acetaminophen 650 mg PO Q4HR PRN #30 ea 07/16/23 Docusate Sodium 100Mg Capsule 100 - 200 mg PO BID PRN #60 cap 07/16/23 [Colace 100Mg Capsule] Ibuprofen [Motrin] 600 mg PO Q6H PRN #30 tab 07/16/23 - PHYSICAL EXAM AT DISCHARGE General Appearance: positive: No acute distress Respiratory: positive: No respiratory distress Cardiovascular: positive: Regular rate & rhythm - LABS Result Diagrams: 07/15/23 05:18 - FOLLOW UP Follow Up: in clinic in 1-2 weeks. - TIME SPENT Time Spent in Discharge (Minutes): 15
== END 2023-07-16 16:00 | disposition home or self-care (01) | DRG 806 ==
LOC: WFO 23:20 → FBP 23:22 → WFO 07-14 00:11
PROVIDERS: ADMIT Obstetrics & Gynecology; ATTEND Obstetrics & Gynecology
PROC: 10E0XZZ Delivery of Products of Conception, External Approach (ICD-10-PCS; principal; 2023-07-14)
PROC: 0KQM0ZZ Repair Perineum Muscle, Open Approach (ICD-10-PCS; 2023-07-14)
DX: O70.1 Second degree perineal laceration during delivery (principal); O72.0 Third-stage hemorrhage; Z37.0 Single live birth; Z3A.38 38 weeks gestation of pregnancy; Z87.891 Personal history of nicotine dependence
CPT/HCPCS: 36415; 59409; 85025; 86850; 86900; 86901; 99215; A9270; J2916; J7120; Q0162